=== PATIENT | female | born 1945 ===

== ENCOUNTER → 2017-05-21 | Outpatient (CLI) | payer MEDICARE, OTHER ==
[2017-05-21 15:02] LABS: BASOPHIL % 0.4 %; EOSINOPHIL # 0.2 K/uL (0.0-0.5); EOSINOPHIL % 2.4 %; HEMATOCRIT 37.9 % (33.0-46.0); HEMOGLOBIN 13.2 g/dL (10.0-15.0); IMMATURE GRANULOCYTE % 0.2 %; LYMPHOCYTE # 2.1 K/uL (0.8-4.0); LYMPHOCYTE % 26.4 %; MCH 30.1 pg (27.0-34.0); MCHC 34.8 gm/dL (32.0-36.5); MCV 86.5 fl (83.0-98.0); MONOCYTE # 0.4 K/uL (0.0-1.0); MONOCYTE % 5.2 %; MPV 10.3 fl (9.4-12.4); NEUTROPHIL # (ANC) 5.3 K/uL (1.8-7.8); NEUTROPHIL % 65.4 %; NRBC % 0 /100WBC (0-0.00); PLATELET COUNT 228 K/uL (150-450); RBC 4.38 M/uL (3.50-5.50); RDW-CV 13.1 % (11.9-14.6); WBC 8.1 K/uL (4.0-11.0)
== END ==
LOC: LCNC 14:48
PROVIDERS: Internal Medicine Interventional Cardiology
DX: R00.0 Tachycardia, unspecified (principal)